=== PATIENT | male | born 1930 | race Caucasian/White ===

== ENCOUNTER 2018-05-23 09:54 | Emergency (ER) | payer OTHER ==
[~2018-05-23] VITALS: Ht 188 cm; Wt 99.8 kg
[2018-05-23 09:57] VITALS: BP 0/0
== END 2018-05-23 10:27 | disposition home or self-care (01) ==
LOC: EDBD 09:54 → ER 09:54
DX: I46.9 Cardiac arrest, cause unspecified (principal); E11.9 Type 2 diabetes mellitus without complications
CPT/HCPCS: 92950